=== PATIENT | male | born 1980 | race Caucasian/White ===

== ENCOUNTER → 2019-07-09 | Outpatient (CLI) | payer BC, SELFPAY ==
[2019-07-09 11:38] LABS: Absolute Lymphocyte Count 2.37 X10^3/uL (0.83-4.51); Absolute Neutrophil Count 2.3 X10^3/uL (2.0-7.7); Basophil# 0.05 X10^3/uL; Basophil% 0.9 % (0-1); Eosinophil# 0.19 X10^3/uL; Eosinophils% 3.4 % (0-5); Hematocrit 47.5 % (40-54); Hemoglobin 15.7 g/dL (13.0-16.5); Lymphocyte # 2.37 X10^3/ul (4.0); Lymphocyte % 42.9 % (19-41); Mean Corp Hgb Conc 33.1 g/dL (32-36); Mean Corpuscular Hgb 29.8 pg (27.0-32.0); Mean Corpuscular Volume 90.3 fL (80-94); Monocyte% 10.9 % (0-10); NRBC Flagged by Analyzer 0 % (0-5); Neutrophil # 2.29 X10^3/uL (2.7-7.7); Neutrophil % 41.5 % (47-70); Platelet Count 239 K/mm3 (150-450); RBC Distribution Width CV 12.5 % (11.6-14.6); RBC Distribution Width SD 40.9 fl (35.1-43.9); Red Blood Count 5.26 M/mm3 (4.6-6.2); White Blood Count 5.5 K/mm3 (4.4-11.0)
[2019-07-09 12:03] LABS: BUN 14 mg/dL (7-18); Glucose 88 mg/dL (74-106)
[2019-07-09 12:04] LABS: ALB/GLOB Ratio 1.3 RATIO (0.9-2.4); AST(SGOT) 13 U/L (15-37); Alanine Aminotransfer ALT/SGPT 27 U/L (16-61); Albumin, Serum 4.2 g/dL (3.2-5.0); Alkaline Phosphatase 67 U/L (45-117); Anion Gap 4 (5-15); BUN/Creat Ratio 13.3 RATIO (10-20); Calcium,Total 8.9 mg/dL (8.5-10.1); Chloride 105 mmol/L (98-107); Cholesterol 186 mg/dL (200); Creatinine, Serum 1.05 mg/dL (0.70-1.30); EST Glomerular Filtration Rate 85 mL/min (>60); Est Glom Filt Rate - Afr Amer 102 mL/min (>60); Globulin 3.3 g/dL (2.2-4.2); High Density Lipoprotein 79 mg/dL; Potassium 3.9 mmol/L (3.5-5.1); Protein, Total 7.5 g/dL (6.4-8.2); Sodium Level 138 mmol/L (136-145); Triglycerides 49 mg/dL; Very Low Density Lipoprotein 10 mg/dL (5-40)
== END | disposition home or self-care (01) ==
LOC: LAB 11:01
PROVIDERS: Family Provider Family Medicine; PCP Family Medicine; Referring Provider Family Medicine; Visit Provider Family Medicine
DX: Z00.00 Encounter for general adult medical examination without abnormal findings (principal)
CPT/HCPCS: 36415; 80053; 80061; 85025

== ENCOUNTER → 2020-08-01 | Outpatient (CLI) | payer BC, SELFPAY | END | disposition home or self-care (01) | LOC: LABSPEC 10:23 | PROVIDERS: PCP Family Medicine; Referring Provider Physician Assistant; Visit Provider Physician Assistant | DX: R05 Cough (principal); R53.83 Other fatigue; R51.9 Headache, unspecified; R09.81 Nasal congestion; Z20.828 Contact with and (suspected) exposure to other viral communicable diseases | CPT/HCPCS: 87635; C9803; U0003 ==

== ENCOUNTER 2022-02-23 18:52 | Emergency (ER) | payer BC, SELFPAY ==
[2022-02-23 18:53] VITALS: BP 108/93; PULSE 100; RESP 16; TEMP 36.7; O2SAT 98; BMI 25.7
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
[2022-02-23 19:27] VITALS: RESP 16
== END 2022-02-23 19:28 | disposition home or self-care (01) ==
PROVIDERS: Emergency Provider Emergency Medicine; PCP Family Medicine; Visit Provider Emergency Medicine
DX: S61.411A Laceration without foreign body of right hand, initial encounter (principal); V86.55XA Driver of 3- or 4- wheeled all-terrain vehicle (ATV) injured in nontraffic accident, initial encounter; F17.210 Nicotine dependence, cigarettes, uncomplicated
CPT/HCPCS: 12001; 99282

== ENCOUNTER 2022-06-22 20:15 | Emergency (ER) | payer BC, SELFPAY ==
[2022-06-22 20:16] VITALS: BP 155/94; PULSE 87; RESP 18; TEMP 36.6; O2SAT 99; BMI 25.7
--- NOTE | 2022-06-22 20:47 | EKG12_ITS ---
Test Reason : DIZZY Blood Pressure : / mmHG Vent. Rate : 072 BPM Atrial Rate : 072 BPM P-R Int : 176 ms QRS Dur : 100 ms QT Int : 364 ms P-R-T Axes : 058 021 041 degrees QTc Int : 398 ms Normal sinus rhythm Normal ECG Confirmed by SHABNAM BAY, HA ([id number]), editor greeting card SUKUMAR MILLIGAN ([id number]) on 06/25/2022 12:40:07 PM Referred By: Confirmed By:HA HAQUE MD
--- NOTE | 2022-06-22 20:47 | CT_ITS ---
STUDY: CT HEAD STROKE PROTOCOL W/O CONTRAST INJECTION REASON FOR EXAM: Male, 41 years old. dizziness RADIATION DOSAGE (If Supplied By Facility): CTDIvol = ( 44.99 ) mGy, DLP = ( 812.98 ) mGycm TECHNIQUE: Transaxial CT imaging of the brain was performed without administration of intravenous contrast material. Individualized dose optimization techniques were used for this CT. COMPARISON: No relevant priors. FINDINGS: BRAIN: Normal lam/white matter differentiation. VENTRICLES: Asymmetric narrowing of the left lateral ventricle. EXTRA-AXIAL SPACES: No hemorrhages, fluid collections, or masses. CALVARIUM/SKULL BASE: Normal. FACE/SINUSES: Visualized portions normal. SOFT TISSUES: Normal. OTHER: None. CT/Brain/Head without Contrast IMPRESSION: No intracranial hemorrhage, mass or acute territorial infarction. Asymmetric ventricles, of uncertain clinical significance. Electronically Signed: Santos Camacho MD at 22:13 EDT ,
--- NOTE | 2022-06-22 20:48 | EX.ED.DYSGE1 ---
HPI History of Present Illness Chief Complaint: Dizziness Informant: patient Onset/Context/Timing Onset: Today Context: Sudden Onset Timing: Continuous Current Severity: Gone Maximum Severity: Moderate Narrative Narrative: 41-year-old male no seen past medical history. Said about a month ago had URI that was treated with Z-Vinny that resolved. Today was at work he Started feeling lightheaded around 4 PM. Said he felt dizzy. Not room spinning. He has had intermittent headaches. No trauma. Denies nausea vomiting diarrhea or fever. Denies any chest pain or shortness of breath. No abdominal pain. No melena. Prior similar symptoms: Yes Recent Illness/Hospitalization: No PFSH PFS Medical History (Updated 06/22/22 @ 22:[address] Keenan Eden MD) Anxiety Chronic headaches CPAP (continuous positive airway pressure) dependence Former smoker GERD (gastroesophageal reflux disease) Sleep apnea Home Medications citalopram 20 mg tablet 20 mg PO DAILY 02/23/22 [History Last Taken Unknown] Allergy/AdvReac Type Severity Reaction Status Date / Time shrimp Allergy Swelling Verified 06/22/22 20:56 Surgical History History of tonsillectomy Social History Smoking Status: Former smoker alcohol intake: never ROS ROS ED ROS Narrative Dizziness. Review of Systems ROS Unobtainable: Denies due to encephalopathy Constitutional Constitutional ED: Denies chills or fever(s) Eyes Eyes: Denies blurry vision ENT ENT ED: Denies ear pain, rhinorrhea or sore throat Cardiovascular Cardiovascular: Denies chest pain or palpitations Respiratory/Chest Respiratory/Chest: Denies cough or dyspnea Gastrointestinal Gastrointestinal: Denies abdominal pain Genitourinary Genitourinary ED: Denies dysuria Musculoskeletal Musculoskeletal: Denies arthralgias Integumentary Denies abscess Neurologic Neurologic: Denies headache(s) Psychiatric Psychiatric: Denies anxiety Endocrine Endocrinology: Denies cold intolerance Hematologic/Lymphatic Hematologic/Lymphatic: Reports none Allergic/Immunologic Allergic/Immunologic ED: Denies mouth swelling or tongue swelling EXAM Physical Exam Narrative Exam Narrative: Well-appearing 41-year-old male vital signs stable afebrile. Pulse ox 99% room air no hypoxia. H EENT exam unremarkable. Neck nontender. No lymphadenopathy. Lungs clear to auscultation bilaterally. Heart regular rhythm no murmur. Abdomen soft nontender. Moving all 4 extremities. Calves are nontender without edema or cords. Neurologically is awake alert with no focal motor deficits. NIH score 0. Normal motor strength. Fingertip to nose within normal limits. Patient has a benign exam. Const Vital Signs: 06/22/22 20:16 06/22/22 20:50 Temperature 97.8 F Temperature Source Temporal Pulse Rate 87 Respiratory Rate 18 Respiratory Effort Normal Respiratory Pattern Normal Blood Pressure 155/94 H Blood Pressure Mean 114 Pulse Ox 99 Oxygen Delivery Method Room Air Positive well nourished and well developed; Negative for obese, cachectic, contractures or unkempt General Appearance ED: well developed and NAD; Negative for unkempt, cachectic, contractures, cyanotic, diaphoretic or pallor Nutritional Appearance: Negative for cachectic or obese HEENT Reports moist mucous membranes; Denies dry mucous membranes Negative for trauma or tenderness Mouth ED: No dry mucous membranes Mouth: No dry mucous membranes Eyes PERRL and EOMs intact bilaterally General Eye ED: Negative for pale conjunctiva or scleral icterus Neck no lymphadenopathy, supple and no JVD General: Negative for tenderness Lymph Lymphatic: Negative for other Chest Wall inspection of chest normal and palpation of chest normal Chest: Negative for other Resp normal respiratory effort and clear to auscultation bilaterally Effort and Inspection: Negative for retractions Auscultation: Negative for rales, rhonchi or wheezes Cardio regular rate, regular rhythm, S1 normal heart sound, S2 normal heart sound and no murmurs Palpation: Negative for palpable S3 Rate: Negative for bradycardia Rhythm: Negative for abnormal rhythm GI normal to inspection, nondistended, normoactive bowel sounds, non-tender, non-distended and no masses; Negative for hepatosplenomegaly Inspection: Negative for abdominal distention Auscultation: normoactive bowel sounds Palpation: soft; Negative for tender Back/Spine no CVA tenderness General Back: Negative for CVA tenderness Cervical Spine: Negative for cervical spine tenderness Thoracic Spine / Upper Back: Negative for thoracic spinal tenderness Lumbar Spine / Lower Back: Negative for lumbar spinal tenderness Extremity normal to inspection General Extremety ED: Negative for edema or tenderness General Extremity: Negative for edema Neuro oriented x3, CN's II-XII intact bilaterally and no sensory deficits noted Sensorium / Orientation: alert; Negative for orientation impaired, lethargic or stuporous Motor Exam: strength 5/5 throughout Psych mental status grossly normal Appearance: Negative for unkempt Attitude: No agitated Mood & Affect: Negative for depressed, anxious or tearful Skin no rashes or lesions noted, no wounds and skin turgor normal General Skin Exam: elasticity normal; Negative for jaundice or pallor Lesions: No lesion noted Rashes: No rashes noted Trauma: Negative for abrasion Wounds: Negative for wounds noted MDM MDM MDM Narrative Medical decision making narrative: 41-year-old male with dizziness. Exam benign. Screening labs and CAT scan to be obtained. Repeat exam at 10:31 PM patient doing well. present in the room I went over all the test with both of them. I explained to him the asymmetric ventricle seen on the CAT scan and explained to them that may or may not have any bearing on what happened today. He will follow-up with his primary care physician and they can do further evaluation as needed. Currently his exam is normal. I cardiomyopathy walked out in the hallway without any difficulty. No ataxia. He has a repeat normal exam. Lab Data Attestation: I reviewed the patient's lab results. Lab results narrative: CBC normal. White count of 5 H&H 14 and 44. Electrolytes normal gap is 6. Normal BUN and creatinine 15 and 1. Glucose 94. CAT scan of the brain unremarkable except asymmetry of the ventricles of uncertain significance.. Labs: Laboratory Results - last 24 hr 06/22/22 06/22/22 21:00 21:00 WBC 5.3 RBC 4.90 Hgb 14.4 Hct 44.9 MCV 91.6 MCH 29.4 MCHC 32.1 RDW Std Deviation 43.7 RDW Coeff of Dawn 13.2 Plt Count 204 MPV 10.1 Immature Gran % (Auto) 0.400 Neut % (Auto) 46.1 L Lymph % (Auto) 38.0 [place] % (Auto) 8.1 Eos % (Auto) 6.6 H Baso % (Auto) 0.8 Absolute Neuts (auto) 2.5 Absolute Lymphs (auto) 2.02 Nucleated RBC % 0 Sodium 141 Potassium 3.7 Chloride 106 Carbon Dioxide 29.0 Anion Gap 6 BUN 15 Creatinine 1.06 Estim Creat Clear Calc 108.78 Est GFR (MDRD) Af Amer 100 Est GFR (MDRD) Non-Af 82 BUN/Creatinine Ratio 14.2 Glucose 94 Calcium 9.0 Radiography Chest X-Ray - ED: 1 View, Read by ED Physician, Heart, Lungs, Mediastinum, Bony Structures, No Acute Disease and Chronic Changes Diagnostic Testing: Clinical Impression(s) from Imaging Studies Brain CT 06/22/22 20:47 IMPRESSION: No intracranial hemorrhage, mass or acute territorial infarction. Asymmetric ventricles, of uncertain clinical significance. Electronically Signed: Santos Camacho MD at 22:13 EDT , Chest x-ray, portable, single view shows no acute abnormality. Normal cardiac silhouette. Normal mediastinum. No infiltrates. Rhythm Strip Rhythm Strip: Sinus Rhythm Rate: 72 Ectopy: None EKG Initial EKG: Attestation: I personally reviewed and interpreted this EKG as follows: Interpretation: Sinus Rhythm and No Acute Injury Pattern Comments: Normal sinus rhythm rate of 72 no acute signs of MT nor ischemia nor dysrhythmia. Discharge Plan Triage Chief Complaint: Dizziness ED Provider: Keenan Eden Dx/Rx/DC Orders Clinical Impression: Dizziness Instructions: ED Dizziness, Uncertain Cause Prescriptions: No Action citalopram 20 mg Tablet 20 mg PO DAILY Rx Instructions: TAKE 10MG-20MG DAILY Primary Care Provider: Tristian Jauregui Referrals: Tristian Jauregui DO [Primary Care Provider] - 1 Week Activity Restrictions/Additional Instructions: Your labs, EKG and chest x-ray are unremarkable tonight. Your CAT scan had asymmetry of the ventricles which may or may not mean anything at all. Follow-up your primary care physician for further evaluation. No specific cause for your dizziness that he had earlier today. Disposition Disposition: Home, Self Care
[2022-06-22 21:18] LABS: Absolute Lymphocyte Count 2.02 X10^3/uL (0.83-4.51); Absolute Neutrophil Count 2.5 X10^3/uL (2.0-7.7); Basophil# 0.04 X10^3/uL; Basophil% 0.8 % (0-1); Eosinophil# 0.35 X10^3/uL; Eosinophils% 6.6 % (0-5); Hematocrit 44.9 % (40-54); Hemoglobin 14.4 g/dL (13.0-16.5); Lymphocyte # 2.02 X10^3/ul (0.83-4.51); Mean Corp Hgb Conc 32.1 g/dL (32-36); Mean Corpuscular Hgb 29.4 pg (27.0-32.0); Mean Corpuscular Volume 91.6 fL (80-94); Mean Platelet Vol. 10.1 fl (6.2-12.0); Monocyte# 0.43 X10^3/uL; Monocyte% 8.1 % (0-10); NRBC Flagged by Analyzer 0 % (0-5); Neutrophil # 2.45 X10^3/uL (2.7-7.7); Neutrophil % 46.1 % (47-70); Platelet Count 204 K/mm3 (150-450); RBC Distribution Width CV 13.2 % (11.6-14.6); RBC Distribution Width SD 43.7 fl (35.1-43.9); White Blood Count 5.3 K/mm3 (4.4-11.0)
[2022-06-22 21:33] LABS: Anion Gap 6 (5-15); BUN 15 mg/dL (7-18); BUN/Creat Ratio 14.2 RATIO (10-20); Chloride 106 mmol/L (98-107); Creatinine, Serum 1.06 mg/dL (0.70-1.30); EST Glomerular Filtration Rate 82 mL/min (>60); Est Glom Filt Rate - Afr Amer 100 mL/min (>60); Estimated Creatinine Clearance 108.78 ml/min; Glucose 94 mg/dL (74-106); Potassium 3.7 mmol/L (3.5-5.1); Sodium Level 141 mmol/L (136-145)
--- NOTE | 2022-06-22 21:45 | RAD_ITS ---
INDICATION: weakness EXAMINATION/TECHNIQUE: X-RAY - XR Chest 1 View COMPARISON: None. FINDINGS: LINES/DEVICES: None. LUNGS: No consolidation, edema or effusion. No pneumothorax. MEDIASTINUM AND CARDIOVASCULAR STRUCTURES: Cardiac silhouette not enlarged. Central airways and mediastinal contour are unremarkable. BONES AND SOFT TISSUES: Unremarkable. RAD/Chest 1 View (Portable) IMPRESSION: No acute cardiopulmonary disease. Electronically Signed: Santos Camacho MD at 23:20 EDT ,
[2022-06-22 23:03] VITALS: BP 142/80; PULSE 75; RESP 16; O2SAT 97
== END 2022-06-22 23:04 | disposition home or self-care (01) ==
PROVIDERS: Emergency Provider Emergency Medicine; PCP Family Medicine; Visit Provider Emergency Medicine
DX: R42 Dizziness and giddiness (principal); F41.9 Anxiety disorder, unspecified; Z87.891 Personal history of nicotine dependence; Z79.899 Other long term (current) drug therapy
CPT/HCPCS: 70450; 71045; 80048; 85025; 93005; 99284; A4216

== ENCOUNTER 2023-01-05 01:21 | Emergency (ER) | payer BC, SELFPAY ==
[2023-01-05 01:23] VITALS: BP 123/69; PULSE 85; RESP 16; TEMP 36.6; O2SAT 97; BMI 28.0
--- NOTE | 2023-01-05 04:02 | CT_ITS ---
EXAM: CT HEAD WITHOUT INTRAVENOUS CONTRAST CLINICAL INDICATION: HEAD WOUND TECHNIQUE: Multiple axial images were obtained of the head without intravenous contrast. This CT exam was performed using one or more of the following dose reduction techniques: automated exposure control, adjustment of the mA and/or kV according to patient size, and/or use of iterative reconstruction technique. This report was created using [employer] report generation technology. RADIATION DOSE: CTDIvol = 44.99 mGy, DLP = 745.49 mGy-cm. COMPARISON: None. FINDINGS: BRAIN AND EXTRA-AXIAL SPACES: Unremarkable. No intra- or extra-axial hemorrhage. No evidence of acute infarct. No intracranial mass or mass effect. There is preservation of the lam/white matter interface. Posterior fossa structures are unremarkable. Ventricles are appropriate for age. No hydrocephalus. Basal cisterns are patent. BONES/JOINTS: Unremarkable. No discrete lytic or blastic abnormalities. SINUSES: Unremarkable as visualized. Clear. MASTOID AIR CELLS: Unremarkable. Clear. ORBITS: Visualized globes, extraocular muscles, optic nerves and retrobulbar fat appear unremarkable. CT/Brain/Head without Contrast IMPRESSION: Negative head/brain CT without intravenous contrast. Electronically Signed: Koby Barnett MD at 4:34 EDT ,
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
[2023-01-05 05:17] VITALS: BP 120/62; PULSE 71; RESP 18; O2SAT 100
== END 2023-01-05 05:19 | disposition home or self-care (01) ==
PROVIDERS: Emergency Provider Emergency Medicine; PCP Family Medicine; Visit Provider Emergency Medicine
DX: S01.01XA Laceration without foreign body of scalp, initial encounter (principal); Z87.891 Personal history of nicotine dependence; W22.09XA Striking against other stationary object, initial encounter
CPT/HCPCS: 70450; 99282

== ENCOUNTER 2023-11-11 19:43 | Emergency (ER) | payer BC, SELFPAY ==
[2023-11-11 19:44] VITALS: BP 136/92; PULSE 74; RESP 14; TEMP 36.8; O2SAT 100; BMI 27.1
[2023-11-11 19:47] VITALS: BP 142/93; PULSE 73; RESP 16; O2SAT 99
--- NOTE | 2023-11-11 20:00 | EKG12_ITS ---
Test Reason : DYSRHYTHMIA Blood Pressure : / mmHG Vent. Rate : 076 BPM Atrial Rate : 076 BPM P-R Int : 174 ms QRS Dur : 102 ms QT Int : 374 ms P-R-T Axes : 063 052 055 degrees QTc Int : 420 ms Normal sinus rhythm Normal ECG Confirmed by SHABNAM BAY, HA ([id number]), video effects editor STANISLAW COUGHLIN ([id number]) on 11/12/2023 9:10:43 AM Referred By: AMANDEEP Confirmed By:HA HAQUE MD
[2023-11-11] MEDS: 0.9% Normal Saline (1000mL) 1,000 ML 999 ML IV (20:09)
[2023-11-11] MEDS: MethylPREDNISolone 125 MG/2 ML Vial IV (20:10)
--- NOTE | 2023-11-11 21:08 | EDS_ITS ---
HPI History of Present Illness Chief Complaint: Allergic Reaction Narrative Narrative: 42-year-old male with history of shrimp allergy presenting with allergic reaction. Patient states he incidentally ate some clean bleeding with shrimp in it. He thinks he might of eaten shrimp. He states that he had some facial swelling and lip swelling. He felt short of breath and had some chest pain. Patient was given Pepcid 40 mg and Benadryl 50 mg and by the time he arrived to the ER his symptoms had improved. He still having a little bit of chest tightness. Denies any cardiac history. No history of DVT/PE and no risk factors. Patient states he has no rashes. Not nauseous. Denies abdominal pain. PFSH PFS Medical History Anxiety Chronic headaches CPAP (continuous positive airway pressure) dependence Former smoker GERD (gastroesophageal reflux disease) Sleep apnea Home Medications citalopram 20 mg tablet 20 mg PO DAILY 02/23/22 [History Last Taken Unknown] epinephrine 0.3 mg/0.3 mL injection, auto-injector (EpiPen 2-Vinny) 0.3 mg (0.3 mL) IM Q4H PRN anaphylaxis #2 ea 11/11/23 [Rx Last Taken Unknown] Allergy/AdvReac Type Severity Reaction Status Date / Time shrimp Allergy Swelling Verified 11/11/23 19:44 Surgical History History of tonsillectomy Social History Smoking Status: Former smoker alcohol intake: never ROS ROS ED Constitutional Constitutional ED: Denies chills, fever(s) or sweats Eyes Eyes: Denies blurry vision or change in vision ENT ENT ED: Denies ear pain or sore throat Cardiovascular Cardiovascular: Reports chest pain; Denies palpitations or racing heartbeat Respiratory/Chest Respiratory/Chest: Denies cough, dyspnea or sputum Gastrointestinal Gastrointestinal: Denies abdominal pain, constipation, diarrhea, nausea or vomiting Genitourinary Genitourinary ED: Denies dysuria, hematuria or urinary frequency Musculoskeletal Musculoskeletal: Denies arthralgias, myalgias or neck pain Integumentary Reports other Details: Lip swelling and facial swelling ; Denies abscess, Abrasions or rash Neurologic Neurologic: Denies headache(s), paresthesias or weakness Psychiatric Psychiatric: Denies anxiety, depression, suicidal ideation or suicidal thoughts Endocrine Endocrinology: Denies polydipsia or polyuria EXAM Physical Exam Const Vital Signs: 11/11/23 19:44 11/11/23 19:47 11/11/23 21:41 Temperature 98.3 F Temperature Source Temporal Pulse Rate 74 73 83 Respiratory Rate 14 16 19 H Blood Pressure 136/92 H 142/93 H 119/74 Blood Pressure Mean 106 109 89 Pulse Ox 100 99 95 Oxygen Delivery Method Room Air Room Air Room Air 11/11/23 21:45 Temperature 97.6 F L Temperature Source Pulse Rate 79 Respiratory Rate 17 Blood Pressure 119/74 Blood Pressure Mean 89 Pulse Ox 95 Oxygen Delivery Method Positive well nourished General Appearance ED: NAD; Negative for pallor HEENT Reports moist mucous membranes trauma Mouth ED: Yes oral and palatal mucosa normal, Yes lips normal, Yes tongue normal and Yes salivary gland normal Mouth: oral and palatal mucosa normal, lips normal, tongue normal and salivary gland normal Throat: posterior oropharynx normal Eyes PERRL and EOMs intact bilaterally Neck no lymphadenopathy Chest Wall inspection of chest normal Resp normal respiratory effort and clear to auscultation bilaterally Auscultation: Negative for rales, rhonchi or wheezes Cardio regular rate and regular rhythm GI normal to inspection, nondistended, normoactive bowel sounds Extremity normal to inspection Neuro oriented x3 and CN's II-XII intact bilaterally Sensorium / Orientation: alert Motor Exam: strength 5/5 throughout Psych mental status grossly normal Skin no rashes or lesions noted General Skin Exam: Negative for jaundice or pallor MDM MDM MDM Narrative Medical decision making narrative: Patient presenting with chest pain after having allergic reaction. This is the most likely cause. Patient concerned that he still having chest pain even was facial swelling lip swelling improved. He is concerned for cardiac involvement. Given this reason patient will given Solu-Medrol intra-articular Benadryl and Pepcid. I will obtain EKG to rule out ischemia as well as high-sensitivity troponin. CBC and BMP will be obtained to rule out electrolyte maladies. Chest x-ray to rule out pneumonia. CBC, BMP, troponin all within normal limits. Chest x-ray my interpretation shows no acute process. EKG on my interpretation shows normal sinus rhythm with a ventricular rate of 76 bpm without sign ischemic change or ectopy. Patient feeling better after treated with Solu- Medrol and he already received Benadryl and Pepcid. Counseled patient I feel he Stable to be discharged home at this point. I gave him an EpiPen prescription. Return precautions are discussed. Impression: 1. Allergic reaction Lab Data Attestation: I reviewed the patient's lab results. Radiography Diagnostic Testing: Clinical Impression(s) from Imaging Studies Chest X-Ray 11/11/23 21:23 IMPRESSION: Normal x-ray examination of the chest. Electronically Signed: Jb Redman MD at 21:59 EST , Discharge Plan Triage Chief Complaint: Allergic Reaction ED Provider: Chaparro Kay Dx/Rx/DC Orders Instructions: ED General Allergic Reactions Prescriptions: New epinephrine [EpiPen 2-Vinny] 0.3 mg/0.3 mL auto-injector 0.3 mg IM Q4H PRN (Reason: anaphylaxis) Qty: 2 0RF No Action citalopram 20 mg Tablet 20 mg PO DAILY Rx Instructions: TAKE 10MG-20MG DAILY Primary Care Provider: Tristian Jauregui Referrals: Tristian Jauregui DO [Primary Care Provider] - Disposition Disposition: Home, Self Care Discharge Date/Time: 11/11/23 21:55
--- NOTE | 2023-11-11 21:23 | RAD_ITS ---
STUDY: X-RAY CHEST REASON FOR EXAM: Male, 42 years old. chest pain TECHNIQUE: Single frontal view of the chest. COMPARISON: June 22, 2022 FINDINGS: The lungs are clear and expanded. There is no demonstrated pleural abnormality. Normal size heart. Normal mediastinum and mary. Normal visualized pulmonary arteries. Normal visualized aortic arch and descending thoracic aorta. Normal visualized thoracic spine. Normal visualized ribs, clavicles, and shoulders. There is no demonstrated abnormality of the visualized soft tissue structures of the upper abdomen. RAD/Chest 1 View (Portable) IMPRESSION: Normal x-ray examination of the chest. Electronically Signed: Jb Redman MD at 21:59 EST ,
[2023-11-11 21:41] VITALS: BP 119/74; PULSE 83; RESP 19; O2SAT 95
[2023-11-11 21:45] VITALS: BP 119/74; PULSE 79; RESP 17; TEMP 36.4; O2SAT 95
== END 2023-11-11 21:55 | disposition home or self-care (01) ==
PROVIDERS: Emergency Provider Student in an Organized Health Care Education/Training Program; PCP Family Medicine; Visit Provider Student in an Organized Health Care Education/Training Program
DX: T78.03XA Anaphylactic reaction due to other fish, initial encounter (principal); Z87.891 Personal history of nicotine dependence; K21.9 Gastro-esophageal reflux disease without esophagitis
CPT/HCPCS: 71045; 93005; 96361; 96374; 99283; J7030

== ENCOUNTER 2024-07-25 11:15 | Emergency (ER) | payer BC, SELFPAY ==
[2024-07-25 11:16] VITALS: BP 134/85; PULSE 78; RESP 18; TEMP 36.8; O2SAT 99; BMI 29.8
--- NOTE | 2024-07-25 11:43 | EDS_ITS ---
HPI History of Present Illness Chief Complaint: Other, Pain/Inj Informant: patient Narrative Narrative: 43-year-old male presenting to the emergency room with neck pain. Patient states he has a history of degenerative disc disease in the neck. He states that every few years he gets these episodes where his neck is very painful to move and is located posteriorly. He states that he did not sleep very well last night but does not recall sleeping in an abnormal position. He feels better with his head side bent to the left. No fever no rashes no URI symptoms. No trauma. No history of IVDA or immunosuppression. [facility] Medical History Anxiety GERD (gastroesophageal reflux disease) Former smoker CPAP (continuous positive airway pressure) dependence Sleep apnea Chronic headaches Home Medications ?Medication ?Instructions ?Recorded ?Last Taken ?Type citalopram 20 mg tablet 20 mg PO DAILY 02/23/22 Unknown History epinephrine 0.3 mg/0.3 mL 0.3 mg (0.3 mL) IM Q4H PRN 11/11/23 Unknown Rx injection, auto-injector (EpiPen anaphylaxis #2 ea 2-Vinny) diazepam 5 mg tablet 5 mg PO Q8 PRN Muscle Spasm #12 07/25/24 Unknown Rx tabs oxycodone-acetaminophen 5 mg-325 1 tab PO Q6H PRN pain 3 days #12 07/25/24 Unknown Rx mg tablet (Percocet) tabs Allergy/AdvReac Type Severity Reaction Status Date / Time shrimp Allergy Swelling Verified 07/25/24 11:17 Surgical History History of tonsillectomy Social History Smoking Status: Former smoker alcohol intake: never ROS ROS ED Constitutional Constitutional ED: Denies chills, fever(s) or weight loss Eyes Eyes: Denies change in vision or diplopia ENT ENT ED: Denies ear pain, rhinorrhea or sore throat Cardiovascular Cardiovascular: Denies chest pain, orthopnea, palpitations or racing heartbeat Respiratory/Chest Respiratory/Chest: Denies cough, dyspnea or orthopnea Gastrointestinal Gastrointestinal: Denies abdominal pain, diarrhea, nausea or vomiting Genitourinary Genitourinary ED: Denies dysuria, hematuria or urinary frequency Musculoskeletal Musculoskeletal: Reports neck pain; Denies arthralgias or myalgias Integumentary Denies abscess or rash Neurologic Neurologic: Denies headache(s), paresthesias or weakness Psychiatric Psychiatric: Denies anxiety, depression, suicidal ideation or suicidal thoughts Endocrine Endocrinology: Denies polydipsia, polyphagia or polyuria Allergic/Immunologic Allergic/Immunologic ED: Denies mouth swelling, tongue swelling or urticaria EXAM Physical Exam Const Vital Signs: 07/25/24 11:16 07/25/24 11:22 Temperature 98.2 F Temperature Source Oral Pulse Rate 78 Respiratory Rate 18 Respiratory Effort Normal Respiratory Pattern Normal Blood Pressure 134/85 H Blood Pressure Mean 101 Pulse Ox 99 Oxygen Delivery Method Room Air Positive well nourished and well developed General Appearance ED: well developed HEENT Reports normocephalic, head/scalp atraumatic and moist mucous membranes Eyes PERRL and EOMs intact bilaterally Neck no lymphadenopathy, supple and no JVD Neck Narrative: Patient reports diffuse right-sided neck tenderness along the trapezius and along the occipital ridge. No SCM tenderness to palpation. There is no rash. Resp normal respiratory effort and clear to auscultation bilaterally Cardio regular rate, regular rhythm and no murmurs GI normal to inspection, nondistended, normoactive bowel sounds and non-tender Palpation: soft Back/Spine no CVA tenderness and normal ROM Extremity normal to inspection General Extremety ED: Negative for edema General Extremity: Negative for edema Neuro oriented x3 and CN's II-XII intact bilaterally Neuro Narrative: Neurologically the patient appears intact of the upper extremities. Normal deep tendon reflexes of the brachial radialis and triceps. Normal sensation. Sensorium / Orientation: alert Motor Exam: strength 5/5 throughout Psych mental status grossly normal Mood & Affect: Negative for depressed or tearful Skin no rashes or lesions noted and no wounds MDM MDM MDM Narrative Medical decision making narrative: Differential diagnosis includes but not limited to muscular spasm cervical radiculopathy degenerative spine cervical stenosis infectious etiologies Clinically I think this is muscular spasm. I will give him a dose of Toradol here. I can write for some diazepam and oxycodone for home use. Would recommend also anti-inflammatories heat gentle stretching. Follow-up with primary care if not improving History & Record Review Discussion w/independent historian: Patient Discharge Plan Triage Chief Complaint: Other, Pain/Inj ED Provider: Dawit Vivar Dx/Rx/DC Orders Clinical Impression: Cervical paraspinal muscle spasm, Acute neck pain Instructions: ED Neck Spasm, No Trauma Prescriptions: New oxycodone-acetaminophen [Percocet] 5-325 mg tablet 1 tab PO Q6H PRN (Reason: pain) 3 Days Qty: 12 0RF diazepam [diazepam] 5 mg tablet 5 mg PO Q8 PRN (Reason: Muscle Spasm) Qty: 12 0RF No Action citalopram 20 mg Tablet 20 mg PO DAILY Rx Instructions: TAKE 10MG-20MG DAILY epinephrine [EpiPen 2-Vinny] 0.3 mg/0.3 mL auto-injector 0.3 mg IM Q4H PRN (Reason: anaphylaxis) Qty: 2 0RF Primary Care Provider: Tristian Jauregui Referrals: Tristian Jauregui DO [Primary Care Provider] - 3-5 Days if not improving Print Language: Kyrgyz Disposition Disposition: Home, Self Care
[2024-07-25] MEDS: Ketorolac 60 MG/2 ML Vial IM (11:49)
[2024-07-25 12:11] VITALS: BP 134/85; PULSE 78; RESP 18; TEMP 36.8; O2SAT 99
== END 2024-07-25 12:12 | disposition home or self-care (01) ==
LOC: ED 11:59
PROVIDERS: Emergency Provider Emergency Medicine; PCP Family Medicine; Visit Provider Emergency Medicine
DX: M62.830 Muscle spasm of back (principal); M54.2 Cervicalgia; Z87.891 Personal history of nicotine dependence; K21.9 Gastro-esophageal reflux disease without esophagitis
CPT/HCPCS: 96372; 99283

== ENCOUNTER → 2024-08-12 | Outpatient (CLI) | payer BC, SELFPAY ==
[2024-08-12 17:51] LABS: Absolute Lymphocyte Count 2.36 X10^3/uL (0.83-4.51); Absolute Neutrophil Count 2.4 X10^3/uL (2.0-7.7); Basophil# 0.05 X10^3/uL; Basophil% 0.9 % (0-1); Eosinophil# 0.38 X10^3/uL; Eosinophils% 6.6 % (0-5); Hematocrit 47.7 % (40-54); Hemoglobin 15.8 g/dL (13.0-16.5); Lymphocyte # 2.36 X10^3/ul (0.83-4.51); Mean Corp Hgb Conc 33.1 g/dL (32-36); Mean Corpuscular Hgb 29.3 pg (27.0-32.0); Mean Corpuscular Volume 88.5 fL (80-94); Mean Platelet Vol. 9.9 fl (6.2-12.0); Monocyte# 0.56 X10^3/uL; Monocyte% 9.7 % (0-10); NRBC Flagged by Analyzer 0 % (0-5); Neutrophil % 41.6 % (47-70); Platelet Count 256 K/mm3 (150-450); RBC Distribution Width CV 12.5 % (11.6-14.6); RBC Distribution Width SD 40.5 fl (35.1-43.9); Red Blood Count 5.39 M/mm3 (4.6-6.2); White Blood Count 5.8 K/mm3 (4.4-11.0)
[2024-08-12 18:13] LABS: Vitamin D,25 Hydroxy 20.4 ng/mL
[2024-08-12 18:21] LABS: ALB/GLOB Ratio 1.1 RATIO (0.9-2.4); AST(SGOT) 21 U/L (15-37); Alanine Aminotransfer ALT/SGPT 44 U/L (16-61); Albumin, Serum 4.1 g/dL (3.2-5.0); Alkaline Phosphatase 88 U/L (45-117); Anion Gap 7 (5-15); BUN 16 mg/dL (7-18); Chloride 107 mmol/L (98-107); Cholesterol 212 mg/dL (200); Creatinine, Serum 1.07 mg/dL (0.70-1.30); EST Glomerular Filtration Rate 81 mL/min (>60); Est Glom Filt Rate - Afr Amer 98 mL/min (>60); Globulin 3.7 g/dL (2.2-4.2); Glucose 87 mg/dL (74-106); High Density Lipoprotein 74 mg/dL; Potassium 3.8 mmol/L (3.5-5.1); Protein, Total 7.8 g/dL (6.4-8.2); Sodium Level 138 mmol/L (136-145); Triglycerides 85 mg/dL; Very Low Density Lipoprotein 17 mg/dL (5-40)
== END | disposition home or self-care (01) ==
LOC: BFHLAB 15:47
PROVIDERS: PCP Family Medicine; Visit Provider Family Medicine
DX: Z00.00 Encounter for general adult medical examination without abnormal findings (principal); R53.83 Other fatigue
CPT/HCPCS: 36415; 80053; 80061; 82306; 84443; 85025